=== PATIENT | female | born 1970 | race Caucasian/White ===

== ENCOUNTER 2021-08-28 16:52 | Inpatient (IN) ==
[2021-08-28 18:01] LABS: Basophils % 0.2 %; Hematocrit 40.8 % (35.3-44.9); Hemoglobin 13.7 g/dL (11.5-15.4); Immature Granulocytes % 1.5 % (0-4); Lymphocytes # 0.4 K/mcL (0.6-4.6); Lymphocytes % 3.6 %; Mean Corpuscular HGB Conc 33.6 g/dL (31.6-35.5); Mean Corpuscular Hemoglobin 30.3 pg (28.0-33.3); Mean Corpuscular Volume 90.3 fL (83.0-100.0); Mean Platelet Volume 9.2 fL (9.4-12.4); Monocytes # 0.6 K/mcL (0.0-1.3); Monocytes % 5.8 %; Neutrophils # 9.5 K/mcL (1.6-8.9); Platelet Count 288 K/mcL (140-400); Red Blood Count 4.52 M/mcL (3.82-4.97); Red Cell Distribution Width 12.9 % (11.5-14.5); Segmented Neutrophils % 88.9 %; White Blood Count 10.7 K/mcL (4.3-11.1)
[2021-08-28] MEDS ORDERED: Isovue-370 500 ML BOTTLE IVP ONE (18:34)
[2021-08-28 19:57] LABS: BUN/Creatinine Ratio 28 (6-26); Blood Urea Nitrogen 17 mg/dL (6-20); Calcium 8.3 mg/dL (8.6-10.3); Carbon Dioxide 24 mEq/L (23-29); Chloride 106 mEq/L (98-107); Glucose 220 mg/dL (70-105); Osmolality,Calculated 298 (280-300); Potassium 3.8 mEq/L (3.5-5.1); Sodium 140 mEq/L (136-145); Troponin I < 0.03 ng/mL (< 0.04); eGFR For African Americans > 60 (> 60); eGFR For Non-African Americans > 60 (> 60)
[2021-08-28 20:31] LABS: ABG Base Excess 2 mEq/L (-2 to 3); ABG HCO3 26 mEq/L (21-27); ABG Oxygen Saturation 93 % (95-98); ABG PCO2 41 mmHg (35-45); ABG PH 7.42 pH Units (7.32-7.45); ABG PO2 67 mmHg (85-104); ABG TCO2 28 mEq/L (20-26); Blood Gas Pressure Support 6 cm H2O
[2021-08-28] MEDS ORDERED: Naloxone 0.4 MG/ML INJ IVP PRN (21:09)
[2021-08-28] MEDS ORDERED: Dexamethasone Sodium Phos/PF 10 MG/ML VIAL IVP SCH (21:11)
[2021-08-28 21:57] LABS: Alanine Aminotransferase 34 Units/L (7-52); Albumin 3.2 g/dL (3.5-5.7); Alkaline Phosphatase 47 Units/L (34-104); Aspartate Amino Transferase 38 Units/L (13-39); Bilirubin,Direct 0.1 mg/dL (0.0-0.2); Bilirubin,Indirect 0.5 mg/dL (0.0-1.0); Bilirubin,Total 0.6 mg/dL (0.3-1.0); C-Reactive Protein 69 mg/L (Less than 10); Globulin 3.3 g/dL (2.4-3.5); Total Protein 6.5 g/dL (6.4-8.9)
[2021-08-28] MEDS: Ipratropium 1 PUFF INHALER IH SCH (23:09)
[2021-08-29] MEDS ORDERED: *HR* LORazepam 0.5 MG TABLET PO ONE (02:05)
[2021-08-29 03:15] LABS: Basophils % 0.3 %; Hematocrit 39.4 % (35.3-44.9); Immature Granulocytes % 1.7 % (0-4); Lymphocytes # 0.5 K/mcL (0.6-4.6); Lymphocytes % 4.3 %; Mean Corpuscular Volume 90.8 fL (83.0-100.0); Mean Platelet Volume 9.1 fL (9.4-12.4); Monocytes # 0.9 K/mcL (0.0-1.3); Monocytes % 8.2 %; Platelet Count 282 K/mcL (140-400); Red Blood Count 4.34 M/mcL (3.82-4.97); Red Cell Distribution Width 12.9 % (11.5-14.5); Segmented Neutrophils % 85.5 %; White Blood Count 10.5 K/mcL (4.3-11.1)
[2021-08-29 03:35] LABS: BUN/Creatinine Ratio 29 (6-26); Blood Urea Nitrogen 16 mg/dL (6-20); Calcium 8.1 mg/dL (8.6-10.3); Carbon Dioxide 25 mEq/L (23-29); Chloride 107 mEq/L (98-107); Glucose 164 mg/dL (70-105); Osmolality,Calculated 293 (280-300); Potassium 3.7 mEq/L (3.5-5.1); Sodium 139 mEq/L (136-145); eGFR For African Americans > 60 (> 60); eGFR For Non-African Americans > 60 (> 60)
[2021-08-29] MEDS: Ipratropium 1 PUFF INHALER IH SCH ×6 (04:04→23:28)
[2021-08-29] MEDS ORDERED: *HR* Enoxaparin 40 MG/0.4 ML SYRINGE SQ SCH (06:00)
[2021-08-29] MEDS ORDERED: Saliva Stimulant 44.3ml BOTTLE PO PRN (07:36)
[2021-08-29] MEDS ORDERED: Dexamethasone Sodium Phos/PF 10 MG/ML VIAL IVP ONE (08:30)
[2021-08-29 08:57] LABS: Lactate Dehydrogenase 283 Units/L (140-271)
[2021-08-29] MEDS ORDERED: Cholecalciferol (D-3) 1,000 UNIT (25MCG) TABLET PO SCH (09:00)
[2021-08-29 09:15] LABS: Ferritin 692 ng/mL (10-120)
[2021-08-29] MEDS: Chlorhexidine Rinse 15 ML MOUTHWASH MM SCH ×2 (10:34→21:57)
[2021-08-29] MEDS: Artificial Tears SOLN 15 ML BOTTLE BOTH EYES SCH ×4 (10:34→19:53)
[2021-08-29] MEDS: Saline Nasal Spray 44 ML BOTTLE NS SCH ×4 (10:34→19:52)
[2021-08-29] MEDS: Multivit/Ca/Min/Fe/FA 1 TAB TABLET PO SCH (10:35)
[2021-08-29] MEDS: Dexamethasone Sodium Phos/PF 10 MG/ML VIAL IVP SCH (10:45)
[2021-08-29] MEDS ORDERED: Dexamethasone Sodium Phos/PF 10 MG/ML VIAL ONE (11:09)
[2021-08-29] MEDS ORDERED: Permethrin Cream Rinse 60 ML LIQUID TP ONE (13:28)
[2021-08-29] MEDS ORDERED: Dextrose Gel 15 GM/37.5 ML TUBE PO PRN ×2 (15:55)
[2021-08-29] MEDS ORDERED: D5% in Water 1,000 ML IVC PRN (15:55)
[2021-08-29] MEDS ORDERED: *HR* Dextrose 50 % in Water (Syg) 50 ML SYRINGE IVP PRN (15:55)
[2021-08-29 16:25] LABS: C-Reactive Protein 52 mg/L (Less than 10)
[2021-08-29] MEDS: Furosemide 20 MG/2 ML VIAL IVP SCH (16:56)
[2021-08-29] MEDS: Insulin LISPRO 300 UNITS/3 ML VIAL SUBQ SCH ×2 (18:42→22:08)
[2021-08-29 20:03] LABS: Adenovirus Not Detected (Not Detect); Bordetella Pertussis Not Detected (Not Detect); Chlamydophila pneumoniae Not Detected (Not Detect); Coronavirus 229E Not Detected (Not Detect); Coronavirus HKU1 Not Detected (Not Detect); Coronavirus NL63 Not Detected (Not Detect); Coronavirus OC43 Not Detected (Not Detect); Human Metapneumovirus Not Detected (Not Detect); Human Rhinovirus/Enterovirus Not Detected (Not Detect); Influenza A Subtype 2009 H1 Not Detected (Not Detect); Influenza B Not Detected (Not Detect); Mycoplasma pneumoniae Not Detected (Not Detect); Parainfluenza Virus 1 Not Detected (Not Detect); Parainfluenza Virus 2 Not Detected (Not Detect); Parainfluenza Virus 3 Not Detected (Not Detect); Parainfluenza Virus 4 Not Detected (Not Detect); Respiratory Syncytial Virus Not Detected (Not Detect)
[2021-08-29 20:06] LABS: SARS-CoV-2 DETECTED (Not Detect)
[2021-08-29] MEDS: Melatonin 3 MG TABLET PO PRN (21:47)
[2021-08-29] MEDS: *HR* Enoxaparin 40 MG/0.4 ML SYRINGE SQ SCH (21:47)
[2021-08-30] MEDS: Saline Nasal Spray 44 ML BOTTLE NS SCH ×7 (01:11→23:44)
[2021-08-30 01:50] LABS: Basophils % 0.4 %; Hematocrit 39.4 % (35.3-44.9); Immature Granulocytes % 2.7 % (0-4); Lymphocytes # 0.5 K/mcL (0.6-4.6); Lymphocytes % 6.5 %; Mean Corpuscular Hemoglobin 29.7 pg (28.0-33.3); Mean Corpuscular Volume 90.2 fL (83.0-100.0); Mean Platelet Volume 9.1 fL (9.4-12.4); Monocytes # 0.6 K/mcL (0.0-1.3); Monocytes % 8.6 %; Neutrophils # 5.8 K/mcL (1.6-8.9); Platelet Count 306 K/mcL (140-400); Red Blood Count 4.37 M/mcL (3.82-4.97); Red Cell Distribution Width 12.8 % (11.5-14.5); Segmented Neutrophils % 81.8 %; White Blood Count 7.1 K/mcL (4.3-11.1)
[2021-08-30 02:00] LABS: INR 1.1; Prothrombin Time 12.8 Seconds (9.4-12.1)
[2021-08-30 02:11] LABS: Alanine Aminotransferase 35 Units/L (7-52); Albumin 3.1 g/dL (3.5-5.7); Alkaline Phosphatase 41 Units/L (34-104); Aspartate Amino Transferase 20 Units/L (13-39); BUN/Creatinine Ratio 38 (6-26); Bilirubin,Total 0.6 mg/dL (0.3-1.0); Blood Urea Nitrogen 21 mg/dL (6-20); C-Reactive Protein 42 mg/L (Less than 10); Calcium 8.2 mg/dL (8.6-10.3); Carbon Dioxide 25 mEq/L (23-29); Chloride 104 mEq/L (98-107); Globulin 3.1 g/dL (2.4-3.5); Glucose 172 mg/dL (70-105); Lactate Dehydrogenase 274 Units/L (140-271); Magnesium 2.1 mg/dL (1.6-2.6); Osmolality,Calculated 293 (280-300); Phosphorous 3.4 mg/dL (2.7-4.5); Potassium 3.7 mEq/L (3.5-5.1); Sodium 138 mEq/L (136-145); Total Protein 6.2 g/dL (6.4-8.9); eGFR For African Americans > 60 (> 60); eGFR For Non-African Americans > 60 (> 60)
[2021-08-30 02:29] LABS: Ferritin 564 ng/mL (10-120)
[2021-08-30] MEDS: Ipratropium 1 PUFF INHALER IH SCH ×6 (03:44→23:30)
[2021-08-30] MEDS: Ondansetron 4 MG/2 ML VIAL IVP SCH ×4 (04:44→23:44)
[2021-08-30 05:00] LABS: ABG Base Excess 4 mEq/L (-2 to 3); ABG HCO3 28 mEq/L (21-27); ABG Oxygen Saturation 86 % (95-98); ABG PCO2 40 mmHg (35-45); ABG PH 7.45 pH Units (7.32-7.45); ABG PO2 49 mmHg (85-104); ABG TCO2 29 mEq/L (20-26)
[2021-08-30] MEDS ORDERED: *HR* LORazepam 2 MG/ML VIAL IVP ONE ×2 (05:04→21:30)
[2021-08-30] MEDS: Insulin LISPRO 300 UNITS/3 ML VIAL SUBQ SCH ×4 (08:05→20:39)
[2021-08-30] MEDS: Furosemide 20 MG/2 ML VIAL IVP SCH (08:06)
[2021-08-30] MEDS: Chlorhexidine Rinse 15 ML MOUTHWASH MM SCH ×2 (08:06→20:51)
[2021-08-30] MEDS: *HR* Enoxaparin 40 MG/0.4 ML SYRINGE SQ SCH ×2 (08:06→20:51)
[2021-08-30] MEDS: Artificial Tears SOLN 15 ML BOTTLE BOTH EYES SCH ×4 (08:06→20:51)
[2021-08-30] MEDS: Multivit/Ca/Min/Fe/FA 1 TAB TABLET PO SCH (08:06)
[2021-08-30] MEDS: Cholecalciferol (D-3) 1,000 UNIT (25MCG) TABLET PO SCH (08:07)
[2021-08-30 18:11] LABS: Bacteria,Urine Few per hpf (None-Few); Mucus,Urine Few per lpf (None-Few); RBC,Urine 0-3 per hpf (0-3); Squamous Epithelial Cell,Urine Moderate per hpf (None-Few)
[2021-08-30 18:25] LABS: Bilirubin,Urine Negative (Negative); Blood,Urine Negative (Negative); Clarity,Urine Turbid (Clear); Color,Urine Yellow (Yellow); Glucose,Urine (UA) Normal (Normal); Ketones,Urine Negative (Negative); Leukocyte Esterase,Urine Negative (Negative); Nitrite,Urine Negative (Negative); PH,Urine 6.5 pH Units (5.0-8.0); Protein,Urine Trace mg/dL (Neg-Trace); Specific Gravity,Urine 1.029 (1.010-1.025); Urobilinogen,Urine Normal (Normal)
[2021-08-30] MEDS: Melatonin 3 MG TABLET PO PRN (18:48)
[2021-08-31 04:00] LABS: Basophils % 0.2 %; Eosinophils # 0.1 K/mcL (0.0-0.6); Eosinophils % 1.6 %; Hematocrit 38.7 % (35.3-44.9); Immature Granulocytes % 3.7 % (0-4); Lymphocytes # 1.2 K/mcL (0.6-4.6); Mean Corpuscular HGB Conc 33.6 g/dL (31.6-35.5); Mean Corpuscular Hemoglobin 30.4 pg (28.0-33.3); Mean Corpuscular Volume 90.4 fL (83.0-100.0); Mean Platelet Volume 9.1 fL (9.4-12.4); Monocytes # 0.6 K/mcL (0.0-1.3); Monocytes % 11.4 %; Neutrophils # 3.3 K/mcL (1.6-8.9); Platelet Count 323 K/mcL (140-400); Red Blood Count 4.28 M/mcL (3.82-4.97); Red Cell Distribution Width 12.9 % (11.5-14.5); Segmented Neutrophils % 61.1 %; White Blood Count 5.5 K/mcL (4.3-11.1)
[2021-08-31] MEDS: Ipratropium 1 PUFF INHALER IH SCH ×5 (04:03→20:28)
[2021-08-31 04:27] LABS: Alanine Aminotransferase 47 Units/L (7-52); Albumin 2.9 g/dL (3.5-5.7); Alkaline Phosphatase 37 Units/L (34-104); Aspartate Amino Transferase 30 Units/L (13-39); BUN/Creatinine Ratio 38 (6-26); Bilirubin,Total 0.7 mg/dL (0.3-1.0); Blood Urea Nitrogen 27 mg/dL (6-20); C-Reactive Protein 21 mg/L (Less than 10); Calcium 8.1 mg/dL (8.6-10.3); Carbon Dioxide 27 mEq/L (23-29); Chloride 104 mEq/L (98-107); Globulin 2.8 g/dL (2.4-3.5); Glucose 97 mg/dL (70-105); Osmolality,Calculated 293 (280-300); Potassium 3.2 mEq/L (3.5-5.1); Sodium 139 mEq/L (136-145); Total Protein 5.7 g/dL (6.4-8.9); eGFR For African Americans > 60 (> 60); eGFR For Non-African Americans > 60 (> 60)
[2021-08-31] MEDS: Saline Nasal Spray 44 ML BOTTLE NS SCH ×5 (05:04→21:06)
[2021-08-31] MEDS: Ondansetron 4 MG/2 ML VIAL IVP SCH ×3 (06:00→17:36)
[2021-08-31] MEDS: Insulin LISPRO 300 UNITS/3 ML VIAL SUBQ SCH ×4 (08:08→21:05)
[2021-08-31] MEDS: Cholecalciferol (D-3) 1,000 UNIT (25MCG) TABLET PO SCH (08:17)
[2021-08-31] MEDS: Dexamethasone Sodium Phos/PF 10 MG/ML VIAL IVP SCH (08:17)
[2021-08-31] MEDS: Furosemide 20 MG/2 ML VIAL IVP SCH (08:17)
[2021-08-31] MEDS: Chlorhexidine Rinse 15 ML MOUTHWASH MM SCH ×2 (08:17→21:05)
[2021-08-31] MEDS: Artificial Tears SOLN 15 ML BOTTLE BOTH EYES SCH ×4 (08:18→21:06)
[2021-08-31] MEDS: Multivit/Ca/Min/Fe/FA 1 TAB TABLET PO SCH (08:18)
[2021-08-31] MEDS: *HR* Enoxaparin 40 MG/0.4 ML SYRINGE SQ SCH ×2 (08:18→21:05)
[2021-09-01] MEDS: Ipratropium 1 PUFF INHALER IH SCH ×6 (00:03→20:58)
[2021-09-01] MEDS: Saline Nasal Spray 44 ML BOTTLE NS SCH ×6 (00:13→20:03)
[2021-09-01] MEDS: Ondansetron 4 MG/2 ML VIAL IVP SCH ×5 (00:30→23:39)
[2021-09-01] MEDS: Melatonin 3 MG TABLET PO PRN ×2 (02:17→20:10)
[2021-09-01 06:56] LABS: Adenovirus F 40/41 PCR Not detected (Not detect); Astrovirus PCR Not detected (Not detect); C.difficile Toxin A/B Gene PCR Not detected (Not detect); Campylobacter by PCR Not detected (Not detect); Cryptosporidium by PCR Not detected (Not detect); Cyclospora cayetanensis PCR Not detected (Not detect); E. coli O157 by PCR Not detected (Not detect); Entamoeba histolytica PCR Not detected (Not detect); Enteroaggregative E.coli(EAEC) Not detected (Not detect); Enteropathogenic E.coli(EPEC) Not detected (Not detect); Enterotoxigenic E.coli (ETEC) Not detected (Not detect); Giardia lamblia PCR Not detected (Not detect); Norovirus GI/GII PCR DETECTED (Not detect); Plesiomonas shigelloides PCR Not detected (Not detect); Rotavirus A PCR Not detected (Not detect); Salmonella PCR Not detected (Not detect); Sapovirus PCR Not detected (Not detect); Shig/EnteroinvasiveE coli EIEC Not detected (Not detect); Shigalike tox-prod E coli STEC Not detected (Not detect); Vibrio PCR Not detected (Not detect); Vibrio cholerae PCR Not detected (Not detect); Yersinia enterocolitica PCR Not detected (Not detect)
[2021-09-01 08:59] LABS: Basophils % 0.2 %; Eosinophils # 0.1 K/mcL (0.0-0.6); Eosinophils % 0.5 %; Hematocrit 39.5 % (35.3-44.9); Hemoglobin 13.6 g/dL (11.5-15.4); Lymphocytes # 0.8 K/mcL (0.6-4.6); Lymphocytes % 8.6 %; Mean Corpuscular HGB Conc 34.4 g/dL (31.6-35.5); Mean Corpuscular Hemoglobin 30.8 pg (28.0-33.3); Mean Corpuscular Volume 89.4 fL (83.0-100.0); Mean Platelet Volume 9.3 fL (9.4-12.4); Monocytes # 0.9 K/mcL (0.0-1.3); Monocytes % 9.5 %; Platelet Count 392 K/mcL (140-400); Red Blood Count 4.42 M/mcL (3.82-4.97); Red Cell Distribution Width 12.5 % (11.5-14.5); Segmented Neutrophils % 79.2 %
[2021-09-01 09:15] LABS: Neutrophils # 7.3 K/mcL (1.6-8.9); White Blood Count 9.2 K/mcL (4.3-11.1)
[2021-09-01 09:17] LABS: Alanine Aminotransferase 52 Units/L (7-52); Albumin 3.1 g/dL (3.5-5.7); Albumin/Globulin Ratio 1.2 (1.1-2.2); Alkaline Phosphatase 43 Units/L (34-104); Aspartate Amino Transferase 25 Units/L (13-39); BUN/Creatinine Ratio 32 (6-26); Bilirubin,Total 0.7 mg/dL (0.3-1.0); Blood Urea Nitrogen 23 mg/dL (6-20); Calcium 8.2 mg/dL (8.6-10.3); Carbon Dioxide 28 mEq/L (23-29); Chloride 103 mEq/L (98-107); Globulin 2.6 g/dL (2.4-3.5); Glucose 109 mg/dL (70-105); Osmolality,Calculated 292 (280-300); Potassium 3.4 mEq/L (3.5-5.1); Sodium 139 mEq/L (136-145); Total Protein 5.7 g/dL (6.4-8.9); eGFR For African Americans > 60 (> 60); eGFR For Non-African Americans > 60 (> 60)
[2021-09-01] MEDS: Insulin LISPRO 300 UNITS/3 ML VIAL SUBQ SCH ×4 (09:42→20:07)
[2021-09-01] MEDS: Furosemide 20 MG/2 ML VIAL IVP SCH (11:20)
[2021-09-01] MEDS: Multivit/Ca/Min/Fe/FA 1 TAB TABLET PO SCH (11:20)
[2021-09-01] MEDS: Cholecalciferol (D-3) 1,000 UNIT (25MCG) TABLET PO SCH (11:20)
[2021-09-01] MEDS: *HR* Enoxaparin 40 MG/0.4 ML SYRINGE SQ SCH ×2 (11:20→20:07)
[2021-09-01] MEDS: Dexamethasone Sodium Phos/PF 10 MG/ML VIAL IVP SCH (11:22)
[2021-09-01] MEDS: Chlorhexidine Rinse 15 ML MOUTHWASH MM SCH ×2 (11:23→20:03)
[2021-09-01] MEDS: Artificial Tears SOLN 15 ML BOTTLE BOTH EYES SCH ×3 (11:23→18:00)
[2021-09-01 11:37] LABS: C-Reactive Protein 9 mg/L (Less than 10)
[2021-09-02] MEDS: Saline Nasal Spray 44 ML BOTTLE NS SCH ×7 (00:13→23:36)
[2021-09-02] MEDS: Artificial Tears SOLN 15 ML BOTTLE BOTH EYES SCH ×5 (00:13→22:53)
[2021-09-02] MEDS: Ipratropium 1 PUFF INHALER IH SCH ×6 (00:42→20:08)
[2021-09-02] MEDS: Ondansetron 4 MG/2 ML VIAL IVP SCH ×4 (05:03→22:54)
[2021-09-02] MEDS: Insulin LISPRO 300 UNITS/3 ML VIAL SUBQ SCH ×4 (08:43→22:29)
[2021-09-02] MEDS: Furosemide 20 MG/2 ML VIAL IVP SCH (08:47)
[2021-09-02] MEDS: Chlorhexidine Rinse 15 ML MOUTHWASH MM SCH ×2 (08:47→22:53)
[2021-09-02] MEDS: Cholecalciferol (D-3) 1,000 UNIT (25MCG) TABLET PO SCH (08:47)
[2021-09-02] MEDS: Multivit/Ca/Min/Fe/FA 1 TAB TABLET PO SCH (08:47)
[2021-09-02] MEDS: Dexamethasone Sodium Phos/PF 10 MG/ML VIAL IVP SCH (08:47)
[2021-09-02] MEDS: *HR* Enoxaparin 40 MG/0.4 ML SYRINGE SQ SCH ×2 (10:39→22:53)
[2021-09-02] MEDS: Melatonin 3 MG TABLET PO PRN (22:53)
[2021-09-03] MEDS: Ipratropium 1 PUFF INHALER IH SCH ×7 (00:42→20:49)
[2021-09-03] MEDS: Saline Nasal Spray 44 ML BOTTLE NS SCH ×5 (02:58→21:23)
[2021-09-03] MEDS: Ondansetron 4 MG/2 ML VIAL IVP SCH ×3 (06:42→18:54)
[2021-09-03 08:08] LABS: Hematocrit 40.9 % (35.3-44.9); Hemoglobin 13.7 g/dL (11.5-15.4); Mean Corpuscular HGB Conc 33.5 g/dL (31.6-35.5); Mean Corpuscular Hemoglobin 30.3 pg (28.0-33.3); Mean Corpuscular Volume 90.5 fL (83.0-100.0); Mean Platelet Volume 9.5 fL (9.4-12.4); Platelet Count 344 K/mcL (140-400); Red Blood Count 4.52 M/mcL (3.82-4.97); Red Cell Distribution Width 12.7 % (11.5-14.5); White Blood Count 11.4 K/mcL (4.3-11.1)
[2021-09-03 08:53] LABS: BUN/Creatinine Ratio 38 (6-26); Blood Urea Nitrogen 30 mg/dL (6-20); Calcium 8.4 mg/dL (8.6-10.3); Carbon Dioxide 28 mEq/L (23-29); Chloride 104 mEq/L (98-107); Glucose 94 mg/dL (70-105); Osmolality,Calculated 294 (280-300); Potassium 3.9 mEq/L (3.5-5.1); Sodium 139 mEq/L (136-145); eGFR For African Americans > 60 (> 60); eGFR For Non-African Americans > 60 (> 60)
[2021-09-03] MEDS: Insulin LISPRO 300 UNITS/3 ML VIAL SUBQ SCH ×4 (08:54→21:03)
[2021-09-03] MEDS: *HR* Enoxaparin 40 MG/0.4 ML SYRINGE SQ SCH ×2 (08:55→21:22)
[2021-09-03] MEDS: Dexamethasone Sodium Phos/PF 10 MG/ML VIAL IVP SCH (08:55)
[2021-09-03] MEDS: Multivit/Ca/Min/Fe/FA 1 TAB TABLET PO SCH (08:55)
[2021-09-03] MEDS: Furosemide 20 MG/2 ML VIAL IVP SCH (08:55)
[2021-09-03] MEDS: Cholecalciferol (D-3) 1,000 UNIT (25MCG) TABLET PO SCH (08:55)
[2021-09-03] MEDS: Artificial Tears SOLN 15 ML BOTTLE BOTH EYES SCH ×4 (08:56→21:23)
[2021-09-03] MEDS: Chlorhexidine Rinse 15 ML MOUTHWASH MM SCH ×2 (08:56→21:22)
[2021-09-03] MEDS: Melatonin 3 MG TABLET PO PRN (21:23)
[2021-09-04] MEDS: Ipratropium 1 PUFF INHALER IH SCH ×7 (00:21→23:18)
[2021-09-04] MEDS: Ondansetron 4 MG/2 ML VIAL IVP SCH ×4 (01:11→17:25)
[2021-09-04] MEDS: Saline Nasal Spray 44 ML BOTTLE NS SCH ×6 (01:11→20:16)
[2021-09-04] MEDS: Insulin LISPRO 300 UNITS/3 ML VIAL SUBQ SCH ×4 (08:06→20:18)
[2021-09-04] MEDS: Chlorhexidine Rinse 15 ML MOUTHWASH MM SCH ×2 (08:42→20:26)
[2021-09-04] MEDS: Dexamethasone Sodium Phos/PF 10 MG/ML VIAL IVP SCH (08:42)
[2021-09-04] MEDS: Furosemide 20 MG/2 ML VIAL IVP SCH (08:42)
[2021-09-04] MEDS: Artificial Tears SOLN 15 ML BOTTLE BOTH EYES SCH ×4 (08:42→20:16)
[2021-09-04] MEDS: Cholecalciferol (D-3) 1,000 UNIT (25MCG) TABLET PO SCH (08:43)
[2021-09-04] MEDS: Multivit/Ca/Min/Fe/FA 1 TAB TABLET PO SCH (08:43)
[2021-09-04] MEDS: *HR* Enoxaparin 40 MG/0.4 ML SYRINGE SQ SCH ×2 (08:43→20:16)
[2021-09-04] MEDS: Melatonin 3 MG TABLET PO PRN (20:26)
[2021-09-05] MEDS: Saline Nasal Spray 44 ML BOTTLE NS SCH ×4 (00:09→14:20)
[2021-09-05] MEDS: Ipratropium 1 PUFF INHALER IH SCH ×4 (04:35→16:24)
[2021-09-05 07:47] LABS: Hematocrit 39.8 % (35.3-44.9); Hemoglobin 13.1 g/dL (11.5-15.4); Mean Corpuscular HGB Conc 32.9 g/dL (31.6-35.5); Mean Corpuscular Volume 91.1 fL (83.0-100.0); Mean Platelet Volume 9.6 fL (9.4-12.4); Platelet Count 309 K/mcL (140-400); Red Blood Count 4.37 M/mcL (3.82-4.97); Red Cell Distribution Width 13.2 % (11.5-14.5); White Blood Count 13.6 K/mcL (4.3-11.1)
[2021-09-05] MEDS: Ondansetron 4 MG/2 ML VIAL IVP SCH ×2 (08:03→13:44)
[2021-09-05] MEDS: Insulin LISPRO 300 UNITS/3 ML VIAL SUBQ SCH ×2 (08:04→14:20)
[2021-09-05 08:07] LABS: BUN/Creatinine Ratio 49 (6-26); Blood Urea Nitrogen 35 mg/dL (6-20); Calcium 8.3 mg/dL (8.6-10.3); Carbon Dioxide 24 mEq/L (23-29); Chloride 106 mEq/L (98-107); Glucose 112 mg/dL (70-105); Osmolality,Calculated 293 (280-300); Potassium 3.8 mEq/L (3.5-5.1); Sodium 137 mEq/L (136-145); eGFR For African Americans > 60 (> 60); eGFR For Non-African Americans > 60 (> 60)
[2021-09-05] MEDS: Chlorhexidine Rinse 15 ML MOUTHWASH MM SCH (08:39)
[2021-09-05] MEDS: Artificial Tears SOLN 15 ML BOTTLE BOTH EYES SCH ×2 (08:39→14:21)
[2021-09-05] MEDS: Furosemide 20 MG/2 ML VIAL IVP SCH (08:39)
[2021-09-05] MEDS: Dexamethasone Sodium Phos/PF 10 MG/ML VIAL IVP SCH (08:39)
[2021-09-05] MEDS: *HR* Enoxaparin 40 MG/0.4 ML SYRINGE SQ SCH (08:40)
[2021-09-05] MEDS: Cholecalciferol (D-3) 1,000 UNIT (25MCG) TABLET PO SCH (08:40)
[2021-09-05] MEDS: Multivit/Ca/Min/Fe/FA 1 TAB TABLET PO SCH (08:40)
[2021-09-05] MEDS ORDERED: levoFLOXacin 500 MG TABLET PO SCH (09:00)
[2021-09-05 12:33] VITALS: BP 113/7; PULSE 81; TEMP 98.4
[2021-09-05 16:29] VITALS: O2SAT 95
== END 2021-09-05 17:55 | disposition home health service (06) | DRG 137 ==
LOC: EMEROOARM 16:52 → SUATTDRO 23:15 → 2NNU 23:15 → 3NENU 08-31 14:01
PROVIDERS: ADMIT Internal Medicine; ATTEND Pharmacist